=== PATIENT | male | born 1970 | race Caucasian/White ===

== ENCOUNTER 2018-11-03 10:14 | Emergency (ER) | payer OTHER ==
--- NOTE | 2018-11-03 10:20 | PDOC ---
History of Present Illness - General Chief Complaint: Bite Stated Complaint: LEFT HAND CAT BITE Time Seen by Provider: 11/03/18 10:18 History Source: Patient Exam Limitations: No Limitations - History of Present Illness Initial Comments: 11/03/18 10:20 Pt is a 48yo M with PMH of HTN presenting to ED with from urgent care for cat bite. Pt is taking care of a feral cat which bit him twice on the L hand 2 days ago. He states the "cat is in my custody". Pt is able to keep an eye on the cat. He states the cat is sick with FIV but has not had any erratic or odd behavior. He has taken it to the vet for treatment but the cat has not had any rabies vaccinations. Last tetanus shot was in 2009. He has not been bitten by the cat before however he has not attempted to handle it prior to 2 days ago. Pt states he put peroxide on his hand and drained the bites. Pt endorses L hand swelling but denies purulence, fevers, chills, cough, tender lymph nodes, abdominal pain, n/v/d, headaches, hydrophobia, anorexia. PMD: [place] PMH: see hpi PSH: none Meds: fluoxetine, quinapril Allergies: nkda Past History - Past Medical History Allergies/Adverse Reactions: Allergies Allergy/AdvReac Type Severity Reaction Status Date / Time No Known Allergies Allergy Verified 11/03/18 10:16 Home Medications: Ambulatory Orders Amox-Tr/K Cl [Augmentin - 875Mg Tablet] 1 tab PO BID #20 tablet 11/03/18 Fluoxetine HCl [Prozac] 40 mg PO DAILY 11/03/18 Quinapril HCl 20 mg PO DAILY 11/03/18 Review of Systems - Review of Systems Constitutional: No: Chills, Fever, Weakness HEENTM: No: Symptoms Reported Respiratory: No: Cough, Shortness of Breath Cardiac (ROS): No: Chest Pain ABD/GI: No: Constipated, Diarrhea, Nausea, Vomiting, Abdominal cramping : No: Symptoms Reported Musculoskeletal: No: Symptoms Reported Integumentary: Yes: See HPI, Erythema Neurological: No: Headache, Numbness, Tingling, Tremors *Physical Exam - Physical Exam General Appearance: Yes: Nourished, Appropriately Dressed. No: Apparent Distress HEENT: positive: EOMI, PATRICIA, Normal ENT Inspection. negative: Thrush Neck: positive: Trachea midline, Supple. negative: Lymphadenopathy (R), Lymphadenopathy (L) Respiratory/Chest: positive: Lungs Clear, Normal Breath Sounds Cardiovascular: positive: Regular Rhythm, Regular Rate, S1, S2. negative: Edema , JVD, Murmur Comments:: 11/03/18 11:07 radial pulses 2+ Gastrointestinal/Abdominal: positive: Normal Bowel Sounds, Soft. negative: Tender Musculoskeletal: negative: CVA Tenderness Extremity: positive: Normal Capillary Refill, Other (no axillary LAD or node tracking up L arm, no streaking) Integumentary: positive: Normal Color, Dry, Warm, Other (L hand erythema, warm and swelling along dorsal aspect of L hand. no indurance or fluctuance. multipe bite wounds on L thumb which are scarred over, no drainage. No crepitus) Neurologic: positive: regulator assembler II-XII NML intact, Fully Oriented, Alert, Normal Mood/ Affect, Normal Response, Motor Strength /5 Medical Decision Making - Medical Decision Making 11/03/18 10:50 Pt is a 48yo M with PMH of HTN presenting to ED with from urgent care for cat bite. Pt is taking care of a feral cat which bit him twice on the L hand 2 days ago. He states the "cat is in my custody". Pt is able to keep an eye on the cat. He states the cat is sick with FIV but has not had any erratic or odd behavior. He has taken it to the vet for treatment but the cat has not had any rabies vaccinations. Last tetanus shot was in 2009. He has not been bitten by the cat before however he has not attempted to handle it prior to 2 days ago. Pt endorses L hand swelling but denies fevers, chills, cough, tender lymph nodes , abdominal pain, n/v/d, headaches, hydrophobia, anorexia. Vitals: afebrile, normotensive, normocardic PE: multipe bite wounds to L hand predominantly on the thumb, scarred, not actively bleeding or open. L hand swelling and slight erythema, no tenderness to palpation, normal ROM, DP palpable. No lymph node tracking or tenderness. no streaking. Ddx includes but not limited to cat scratch disease, pastruella infection, cellulitis, tenosynovitis, compartment syndrome, necrotizing fascitis, tenosynovitis -ZACH[facility] form filled out -Boostrix, Unasyn pt does not require labs at this time. Does not need rabies prophylaxis at this time; pt is able to keep an eye on the cat and have it tested. after abx, pt is safe for dc. No systemic signs of infection, has pmd, given hand f/u and abx rx. Pt told about watching cat and having it tested for rabies. Given return precautions. pt understands and agrees to plan. DC instructions given 11/03/18 11:08 *DC/Admit/Observation/Transfer Diagnosis at time of Disposition: Cat bite of hand Qualifiers: Encounter type: initial encounter Laterality: left Qualified Code(s): S61.452A - Open bite of left hand, initial encounter; W55.01XA - Bitten by cat, initial encounter - Discharge Dispostion Disposition: HOME Condition at time of disposition: Improved Decision to Admit order: No - Referrals Referrals: Quang Walsh MD [Staff Physician] - - Patient Instructions Printed Discharge Instructions: DI for Animal Bites Additional Instructions: You were seen in the emergency room today for a cat bite. You were given antibiotics here in the emergency room and a prescription was sent to your pharmacy. Please take the medication as directed. You may develop diarrhea from taking this medication. I recommend following up with a hand surgeon to make sure everything is ok. Information is provided below. Please make an appointment with your primary care doctor as well. You will be getting a phone call from the Department of Health. The bite has been reported. Please keep an eye on the cat for any unusual behavior and have her tested for rabies. You can take ibuprofen or Tylenol for pain as needed. You can also ice the hand for the swelling. Come back to the emergency room if redness gets worse, swelling gets worse, you develop fever, you are unable to move your fingers or if any new concerning symptom develops. Thank you - Post Discharge Activity
--- NOTE | 2018-11-03 10:28 | PDOC ---
Attending Attestation - Resident Resident Name: Analilia Mascorro - ED Attending Attestation I have performed the following: I have examined & evaluated the patient, The case was reviewed & discussed with the resident, I agree w/resident's findings & plan, Exceptions are as noted - HPI HPI: 48 yo M presents with cat bite. He cares for a feral cat- feeds her outside. He has been taking her to a vet to get her shots and get her tested for FIV. He states she bit him multiple times 3 days ago when he tried to grab her. No other unusual behavior, he has been monitoring her for aggression. Last tetanus booster 2008. - Physicial Exam PE: GENERAL: Awake, alert, and fully oriented, in no acute distress HEAD: No signs of trauma EXTREMITIES: L hand with multiple puncture garrett to the webspace between 1st and 2nd digits. +Swelling of the hand. No lymphatic streaking. FROM of the fingers and wrist. Remainder of extremities with normal range of motion, no edema. No clubbing or cyanosis. No cords, erythema, or tenderness NEUROLOGICAL: Cranial nerves II through XII grossly intact. Normal speech, normal gait. Motor and sensation intact SKIN: Warm, Dry, normal turgor, no rashes or lesions noted. - Medical Decision Making Pt with swelling to the hand, now 3 days s/p multiple cat bites. As he has the cat and is able to monitor for unusual behavior, will not give the rabies shot today. This is expected behavior for a cat that is not domesticated when someone attempts to pick it up. Will update his tdap, as they are puncture wounds and his last shot was 9 years ago. Will give first dose of abx IV in ED, then DC on augmentin. Erythematous area was outlined so that he can monitor. If the redness extends, counseled him to return to the hospital for IV abx.
[2018-11-03] MEDS ORDERED: AMPICILLIN NA/SULBACTAM NA 3 GM in SODIUM CHLORIDE 100 ML IVPB ONE (10:37)
[2018-11-03 10:42] VITALS: BP 128/79; PULSE 68; TEMP 98.9; BMI 26.2
[2018-11-03] MEDS ORDERED: DIPHTH,PERTUSS(ACELL),TET 0.5 ML DISP.SYRIN IM ONE ×2 (10:47→10:52)
[2018-11-03] MEDS ORDERED: AMPICILLIN NA/SULBACTAM NA 3 GM VIAL ONE (10:52)
== END 2018-11-03 11:26 | disposition home or self-care (01) ==
LOC: FER 10:14
PROC: 3E0234Z Introduction of Serum, Toxoid and Vaccine into Muscle, Percutaneous Approach (ICD-10-PCS; principal; 2018-11-03)
PROC: 3E02329 Introduction of Other Anti-infective into Muscle, Percutaneous Approach (ICD-10-PCS; 2018-11-03)
DX: S61.452A Open bite of left hand, initial encounter (principal); W55.01XA Bitten by cat, initial encounter; Y93.K9 Activity, other involving animal care; Y92.098 Other place in other non-institutional residence as the place of occurrence of the external cause; Y99.8 Other external cause status
CPT/HCPCS: 90715; 99282-25